=== PATIENT | female | born 1980 | race Caucasian/White ===

== ENCOUNTER 2018-07-18 07:00 | Emergency (ER) | payer OTHER ==
[~2018-07-18] VITALS: Ht 162.6 cm; Wt 59.9 kg
[2018-07-18 07:03] VITALS: BP_SYST 128
[2018-07-18 07:40] VITALS: BP_SYST 128
== END 2018-07-18 07:40 ==
LOC: SED 07:00
DX: Z02.83 Encounter for blood-alcohol and blood-drug test (principal)